=== PATIENT | female | born 1970 | race Caucasian/White ===

== ENCOUNTER 2018-06-06 08:00 | Outpatient (RCR) ==
[2014-07-30 11:58] VITALS: BMI 23.4
--- NOTE | 2018-05-25 16:49 | RS.OPPTEV2 ---
Date of Note: 05/25/18 Visit #: 1 Number of visits approved by Insurance: n/a Date of Evaluation: 05/25/18 Payer Source: Insurance Surgery Performed?: Yes (L shld manipulation) Date of Procedure: 05/24/18 Treatment Diagnosis: adhesive capsulitis of L shld, L shld pain and joint stiffness History of Condition/Mechanism of Injury:: Pain began around 02/2018. No definite injury. Underwent L shld manipulation on 05/24/18. Prior Level of Function.....Patient was independent with: ADL's, Self Care, Work /Vocation (works in real estate), Caregiving, Ambulation/Mobility, Community Integration/Access Functional Limitations: Sleep, ADL's, Reaching, Pushing, Pulling, Lifting, Carrying Current Subjective/complaints:: pt states that she took a pain pill approx 1 1/ 2 hour ago and it is not helping the pain at all. Reports she has been using ice at home since manipulation prior to that was alternating ice and heat. Treatment Side (optional): Left *Precautions: n/a Medical History Medical History: Unremarkable Surgical History: Hysterectomy Smoking Status: Never smoker Hx Home Medications: Belviq Patient's Goals: decrease pain in L shld and increase motion. Pain Assessment - Pain Description Pain Location: L shld Pain Description: Sharp, Aching Current Pain Intensity: 7 Worst Pain Intensity: 10 Functional Outcome Measure UE Functional Index: 57 - G Codes & Severity Modifier G Codes & Modifier: n/a Source of G Code score: n/a Observation - Observation Posture: Forward Head, Rounded Shoulders, Increased Lumbar Lordosis Handedness: Right Gait - Gait Pattern General Gait Pattern Observation: No Deviations/Normal General Range of Motion: RUE WFL's. LUE elbow and hand WFL's. BLE WFL's Muscle Strength: RUE 5/5. BLE 5/5. LUE elbow/wrist and hand 4/5 Shoulder ROM: Right WFL's Shoulder Muscle Strength: Right WFL's - Left Shoulder ROM Left Shoulder Flexion: 112 (AAROM) Left Shoulder Abduction: 88 (AAROM) Left Shoulder Internal Rotation: 26 Left Shoulder External Rotation: 20 Left Shoulder ROM Limitations: Soft Tissue Tightness, Muscle Weakness, Pain - Left Shoulder Strength Left Shoulder Flexion: 3- Fair- Left Shoulder Abduction: 3- Fair- Left Shoulder External Rotation: 3- Fair- Left Shoulder Internal Rotation: 3- Fair- - Special Tests Shoulder Empty Can (Supraspinatus) Test: Positive Left Shoulder Speed's Sign Test: Positive Left Shoulder Drop Arm Test: Positive Left Palpation Palpation Findings: Tenderness Comments:: tenderness noted at insertion of deltoid, and in bicipital groove Sensation - Sensation Right Upper Extremity: Intact/Normal Left Upper Extremity: Intact/Normal Right Lower Extremity: Intact/Normal Left Lower Extremity: Intact/Normal Balance - Sitting Balance Static Sitting Balance: Normal Dynamic Sitting Balance: Normal - Standing Balance Static Standing Balance: Normal Dynamic Standing Balance: Normal - Treatment Modality: Ultrasound Parameters/Method Applied: 1.5 w/cm2 x 10mins Treatment Area: L shld/upper trap Patient Position: Sitting Interventions - Exercise/Activities/Manual Therapy Exercises/Activities: pt received PROM L shld, pt also performed AAROM with wand for flex, abd/add. pt also performed scapular retraction and wall ladder for flex and abd. Manual Therapy: n/a HOME EXERCISE PROGRAM: pt given written HEP including: scapular retraction, wand ex, pendulum, wall walking - Charges Timed Code Treatment Minutes: 61 Total Treatment Time: 68 Procedures billed for this date of service:: ann lion, u/s EVALUATION COMPLEXITY LEVEL EVALUATION COMPLEXITY LEVEL: HISTORY: Low (L shld pain), EXAM OF BODY SYSTEMS: Low, CLINICAL PRESENTATION: Low, CLINICAL DECISION MAKING: Low Assessment Assessment: pt presents with diagnosis of adhesive capsulitis. pt with L shld pain with decreased ROM, strength, and increased muscle tightness in L upper trap. Feel pt would benefit from skilled PT for therex for ROM, stretching, strengthening as well as modalities to improve L shld ROM. Patient Education: Home Exercise Program, Education of Plan of Care Rehab Potential: Good Short Term Goals Goal #1: pt independent with initial HEP Goal to be met by: 06/02/18 Goal #2: Improve L shld ROM flex 120 abd 95 IR 30 ER 30 Goal to be met by: 06/02/18 Goal #3: Decrease pain to <6/10 L shld Goal to be met by: 06/02/18 Half-Way Goals Goal #1: pt able to perform normal household duties with less pain Goal to be met by: 06/09/18 Goal #2: pt with ROM L shld flex 130 abd 120 Goal to be met by: 06/09/18 Goal #3: pt report able to reach back of her head with LUE Goal to be met by: 06/09/18 Plan - Treatment to be Provided Procedures: Therapeutic Exercises, Therapeutic Activity, Manual Therapy, Massage , Patient Education Modalities: Electrical Stimulation, Ultrasound/Phonophoresis, Cryotherapy, Hot Packs - Treatment Plan Frequency: 5x Duration: 2 weeks Dates of Half-Way Goals: 06/09/18 Expiration date of current Insurance Approval:: n/a - Treatment Code (1) Adhesive capsulitis of left shoulder Code(s): M75.02 - ADHESIVE CAPSULITIS OF LEFT SHOULDER (2) Pain in joint, shoulder region Code(s): M25.519 - PAIN IN UNSPECIFIED SHOULDER Qualifiers: Laterality: left Qualified Code(s): M25.512 - Pain in left shoulder (3) Stiffness of joint, not elsewhere classified, shoulder region Code(s): M25.619 - STIFFNESS OF UNSPECIFIED SHOULDER, NOT ELSEWHERE CLASSIFIED (4) Muscle weakness Code(s): M62.81 - MUSCLE WEAKNESS (GENERALIZED)
--- NOTE | 2018-05-26 14:02 | RS.OPPTDN ---
Subjective Date of Note: 05/26/18 Visit #: 2 Number of visits approved by Insurance: n/a Date of Evaluation: 05/25/18 Payer Source: Insurance Treatment Diagnosis: adhesive capsulitis of L shld, L shld pain and joint stiffness Current Subjective/complaints:: pt states she is doing pretty good today. States she did work on stretching last night. *Precautions: n/a Pain Assessment - Pain Description Pain Location: L shld Pain Description: Aching Current Pain Intensity: 4 - Treatment Modality: Ultrasound Parameters/Method Applied: 1.5w/cm2 x 8 mins Treatment Area: L shld Patient Position: Sitting Interventions - Exercise/Activities/Manual Therapy Exercises/Activities: pt received PROM stretching L shld all planes of motion. pt performed shld flex wand ex for flex, and abd x 10, scapular retraction x 10 with green theraband, wall walking with flex, and abd, and ER stretch at the wall. pt also performed pulleys for flex, and abd x 10 reps. Manual Therapy: n/a HOME EXERCISE PROGRAM: pt given written HEP including: scapular retraction, wand ex, pendulum, wall walking - Charges Timed Code Treatment Minutes: 44 Total Treatment Time: 48 Procedures billed for this date of service:: ex 2, ultrasound Assessment: pt improving with L shld ROM as well as decreased pain. pt motivated to progress with PT. Patient Education: Home Exercise Program, Education of Plan of Care Patient demonstrates compliance with HEP?: Yes Short Term Goals Goal #1: pt independent with initial HEP Goal to be met by: 06/02/18 Progress towards Goal:: Progressing Goal #2: Improve L shld ROM flex 120 abd 95 IR 30 ER 30 Goal to be met by: 06/02/18 Progress towards Goal:: Progressing Goal #3: Decrease pain to <6/10 L shld Goal to be met by: 06/02/18 Progress towards Goal:: Progressing Food Safety Coordinator Goals Goal #1: pt able to perform normal household duties with less pain Goal to be met by: 06/09/18 Progress towards goal: Progressing Goal #2: pt with ROM L shld flex 130 abd 120 Goal to be met by: 06/09/18 Progress towards goal: Progressing Goal #3: pt report able to reach back of her head with LUE Goal to be met by: 06/09/18 Progress towards goal: Progressing Plan Dates of Food Safety Coordinator Goals: 06/09/18 Expiration date of current Insurance Approval:: 06/06/18 (must call ins) PLAN: continue to progress with stretching, strengthening as well as modalities to decrease pain and muscle tightness.
--- NOTE | 2018-05-30 09:56 | RS.OPPTDN ---
Subjective Date of Note: 05/29/18 Visit #: 3 Number of visits approved by Insurance: na Date of Evaluation: 05/25/18 Payer Source: Insurance Treatment Diagnosis: adhesive capsulitis of L shld, L shld pain and joint stiffness Current Subjective/complaints:: Patient reports soreness at end range with PROM. States she has difficulty with IR and ER of the left shoulder, especially when donning clothes. *Precautions: n/a Pain Assessment - Pain Description Pain Location: left shoulder Pain Description: Tightness, Aching Current Pain Intensity: mild to mod at end range - Treatment Modality: Ultrasound Parameters/Method Applied: [id number] at 1.5w/cm2 to the left shoulder joint and upper traps prior to EX. Patient in sitting. Patient Position: Sitting Interventions - Exercise/Activities/Manual Therapy Exercises/Activities: PROM to left shoulder all directions. Grade II joint mobs and gentle distraction. Increased to 3# wand for shoulder flexion and chest press. Yellow and red theraband for bilateral shoulder ER in supine. Ended with additional PROM stretching all directions. Wall walking with for flex, abd, and ER stretch. Doorway shoulder and anterior chest stretch, 3 position. Discussed overhead shoulder pulleys. Total minutes of Exercise: 32mins Manual Therapy: n/a HOME EXERCISE PROGRAM: pt given written HEP including: scapular retraction, wand ex, pendulum, wall walking - Charges Timed Code Treatment Minutes: 44mins Total Treatment Time: 46mins Procedures billed for this date of service:: US, EX2 Assessment: Patient able to tolerate increase PROM and stretching of the left shoulder. She is very attentive to instruction of HEP. Patient Education: Body/Joint mechanics, Home Exercise Program Patient demonstrates compliance with HEP?: Yes Short Term Goals Goal #1: pt independent with initial HEP Goal to be met by: 06/02/18 Progress towards Goal:: Progressing Goal #2: Improve L shld ROM flex 120 abd 95 IR 30 ER 30 Goal to be met by: 06/02/18 Progress towards Goal:: Progressing Goal #3: Decrease pain to <6/10 L shld Goal to be met by: 06/02/18 Progress towards Goal:: Progressing Upper Doubler Goals Goal #1: pt able to perform normal household duties with less pain Goal to be met by: 06/09/18 Progress towards goal: Progressing Goal #2: pt with ROM L shld flex 130 abd 120 Goal to be met by: 06/09/18 Progress towards goal: Progressing Goal #3: pt report able to reach back of her head with LUE Goal to be met by: 06/09/18 Progress towards goal: Progressing Plan Dates of Upper Doubler Goals: 06/09/18 Expiration date of current Insurance Approval:: 06/09/18 PLAN: Progress with ROM and strengthening of the left shoulder to return to PLOF.
--- NOTE | 2018-05-30 10:11 | RS.OPPTDN ---
Subjective Date of Note: 05/30/18 Visit #: 4 Number of visits approved by Insurance: na Date of Evaluation: 05/25/18 Payer Source: Insurance Treatment Diagnosis: adhesive capsulitis of L shld, L shld pain and joint stiffness Current Subjective/complaints:: Reports some increased soreness left shoulder joint last night. States she is seeing progress overall. *Precautions: n/a Pain Assessment - Pain Description Pain Location: left shoulder joint Pain Description: Tightness Pain Description: soreness Current Pain Intensity: mild - Treatment Modality: Ultrasound Parameters/Method Applied: [id number] at 1.5w/cm2 to the left shoulder joint and the upper trap prior to EX. Patient Position: Sitting Interventions - Exercise/Activities/Manual Therapy Exercises/Activities: PROM to left shoulder all directions, grade II joint mobs , and joint distraction. Manually resisted left shoulder flex, ext, IR, and ER, multiple reps. Increased to 5# wand for shoulder flexion and chest press. Green theraband for resisted left shoulder flex, ext, chest press, biceps and triceps press. Ended with additional PROM stretching all directions. In sitting, wand for overhead flexion. Total minutes of Exercise: 34mins Manual Therapy: n/a HOME EXERCISE PROGRAM: pt given written HEP including: scapular retraction, wand ex, pendulum, wall walking - Charges Timed Code Treatment Minutes: 44mins Total Treatment Time: 44mins Procedures billed for this date of service:: US, EX2 Assessment: Patient progressing well with strengthening. Patient Education: Home Exercise Program Patient demonstrates compliance with HEP?: Yes Short Term Goals Goal #1: pt independent with initial HEP Goal to be met by: 06/02/18 Progress towards Goal:: Progressing Goal #2: Improve L shld ROM flex 120 abd 95 IR 30 ER 30 Goal to be met by: 06/02/18 Progress towards Goal:: Progressing Goal #3: Decrease pain to <6/10 L shld Goal to be met by: 06/02/18 Progress towards Goal:: Progressing Senior Care Goals Goal #1: pt able to perform normal household duties with less pain Goal to be met by: 06/09/18 Progress towards goal: Progressing Goal #2: pt with ROM L shld flex 130 abd 120 Goal to be met by: 06/09/18 Progress towards goal: Progressing Goal #3: pt report able to reach back of her head with LUE Goal to be met by: 06/09/18 Progress towards goal: Progressing Plan Dates of Psychologist Military Personnel Goals: 06/09/18 Expiration date of current Insurance Approval:: 06/09/18 PLAN: Progress with ROM and strengthening of the left UE, working toward PLOF.
--- NOTE | 2018-05-31 15:40 | RS.OPPTDN ---
Subjective Date of Note: 05/31/18 Visit #: 5 Number of visits approved by Insurance: na Date of Evaluation: 05/25/18 Payer Source: Insurance Treatment Diagnosis: adhesive capsulitis of L shld, L shld pain and joint stiffness Current Subjective/complaints:: Patient reports she did some lifting last night and has some increase muscle soreness in the left shoulder and upper traps. *Precautions: n/a Pain Assessment - Pain Description Pain Location: left shoulder Pain Description: soreness Current Pain Intensity: mild - Treatment Modality: Ultrasound Parameters/Method Applied: [id number] at 1.5w/cm2 to the left shoulder and upper traps prior to EX. patient in sitting. Patient Position: Sitting Interventions - Exercise/Activities/Manual Therapy Exercises/Activities: PROM to left shoulder all directions, grade II joint mobs , and joint distraction. Manually resisted left shoulder isometrics in flex, ext , IR, and ER, multiple reps. 5# wand for shoulder flexion and chest press. Green theraband for resisted left shoulder flex, ext, chest press, biceps and triceps press. Green theraband and wand for resisted bilateral shoulder flexion and extension. Isometric bilateral IR with ball between hands. Ball for left shoulder add and ext. In sitting, 3# wand for bilateral shoulder flexion. Ended with additional PROM stretching all directions. In sitting, wand for overhead flexion. Total minutes of Exercise: 36mins Manual Therapy: n/a HOME EXERCISE PROGRAM: pt given written HEP including: scapular retraction, wand ex, pendulum, wall walking - Charges Timed Code Treatment Minutes: 48mins Total Treatment Time: 52mins Procedures billed for this date of service:: US, EX2 Assessment: Patient progressing well with ROM and strengthening. Patient Education: Body/Joint mechanics, Home Exercise Program, Home Safety, Activity Modification Patient demonstrates compliance with HEP?: Yes Short Term Goals Goal #1: pt independent with initial HEP Goal to be met by: 06/02/18 Progress towards Goal:: Partially Met Goal #2: Improve L shld ROM flex 120 abd 95 IR 30 ER 30 Goal to be met by: 06/02/18 Progress towards Goal:: Partially Met Goal #3: Decrease pain to <6/10 L shld Goal to be met by: 06/02/18 Progress towards Goal:: Partially Met Sulfur Burner Goals Goal #1: pt able to perform normal household duties with less pain Goal to be met by: 06/09/18 Progress towards goal: Progressing Goal #2: pt with ROM L shld flex 130 abd 120 Goal to be met by: 06/09/18 Progress towards goal: Progressing Goal #3: pt report able to reach back of her head with LUE Goal to be met by: 06/09/18 Progress towards goal: Progressing Plan Dates of Alf Goals: 06/09/18 Expiration date of current Insurance Approval:: 06/09/18 PLAN: Progress ROM and strengthening of the left shoulder to increase functional activity and return to PLOF.
--- NOTE | 2018-06-01 14:41 | RS.OPPTDN ---
Subjective Date of Note: 06/01/18 Visit #: 6 Number of visits approved by Insurance: na Date of Evaluation: 05/25/18 Payer Source: Insurance Treatment Diagnosis: adhesive capsulitis of L shld, L shld pain and joint stiffness Current Subjective/complaints:: Reports left shoulder soreness is better today. Reports mild to mod discomfort with end range stretch with left shoulder scaption. *Precautions: n/a Pain Assessment - Pain Description Pain Location: left shoulder, upper arm Pain Description: soreness Current Pain Intensity: mild to mod Interventions - Exercise/Activities/Manual Therapy Exercises/Activities: PROM to left shoulder all directions, grade II joint mobs. Manually resisted left shoulder isometrics in flex, ext, horz add, horz abd, IR, and ER, multiple reps. Increased to 6# wand for shoulder flexion and chest press. Green theraband for resisted left shoulder flex, ext, chest press, biceps and triceps press. Green theraband and wand for resisted bilateral shoulder flexion and extension. Isometric bilateral IR with ball between hands. 1 1/2# cuff weight for resisted left shoulder flex and scaption. In sitting, 3 # wand for bilateral shoulder flexion. 1 1/2# cuff weight for resisted left shoulder flexion, scaption, and "empty can". Total minutes of Exercise: 34mins Manual Therapy: Trigger point release to the left mid/upper traps. HOME EXERCISE PROGRAM: pt given written HEP including: scapular retraction, wand ex, pendulum, wall walking - Charges Timed Code Treatment Minutes: 34mins Total Treatment Time: 36mins Procedures billed for this date of service:: EX2 Assessment: Patient progressing with strengthening. Patient Education: Home Exercise Program Patient demonstrates compliance with HEP?: Yes Short Term Goals Goal #1: pt independent with initial HEP Goal to be met by: 06/02/18 Progress towards Goal:: Partially Met Goal #2: Improve L shld ROM flex 120 abd 95 IR 30 ER 30 Goal to be met by: 06/02/18 Progress towards Goal:: Partially Met Goal #3: Decrease pain to <6/10 L shld Goal to be met by: 06/02/18 Progress towards Goal:: Partially Met Cdl Team Truck Driver Goals Goal #1: pt able to perform normal household duties with less pain Goal to be met by: 06/09/18 Progress towards goal: Progressing Goal #2: pt with ROM L shld flex 130 abd 120 Goal to be met by: 06/09/18 Progress towards goal: Progressing Goal #3: pt report able to reach back of her head with LUE Goal to be met by: 06/09/18 Progress towards goal: Progressing Plan Dates of Fpc Goals: 06/09/18 Expiration date of current Insurance Approval:: 06/09/18 PLAN: Progress with AROM and strengthening.
--- NOTE | 2018-06-02 14:34 | RS.OPPTDN ---
Subjective Date of Note: 06/02/18 Visit #: 7 Number of visits approved by Insurance: NA Date of Evaluation: 05/25/18 Payer Source: Insurance Treatment Diagnosis: adhesive capsulitis of L shld, L shld pain and joint stiffness Current Subjective/complaints:: Patient reports soreness in the morning following increase in resistive exercise and manula therapy to the left upper trap. *Precautions: n/a Pain Assessment - Pain Description Pain Location: left shoulder, upper trap Pain Description: soreness Current Pain Intensity: mild Other Comments regarding Pain:: Discomfort at end range with flex, scap, and ER Interventions - Exercise/Activities/Manual Therapy Exercises/Activities: PROM to left shoulder all directions, grade II joint mobs. Manually resisted left shoulder isometrics in flex, ext, horz add, horz abd, IR, and ER, multiple reps. Increased to 7# wand for shoulder flexion and chest press. Green theraband for resisted left shoulder flex, ext, chest press, biceps and triceps press. Green theraband and wand for resisted bilateral shoulder flexion and extension. Isometric bilateral IR with ball between hands. 1 1/2# cuff weight for resisted left shoulder flex and scaption. In sitting, 3 # wand for bilateral shoulder flexion. 1 1/2# cuff weight for resisted left shoulder flexion, scaption, and "empty can". Total minutes of Exercise: 35mins Manual Therapy: Trigger point release to the left mid/upper traps. Total minutes of Manual Therapy: 8mins HOME EXERCISE PROGRAM: pt given written HEP including: scapular retraction, wand ex, pendulum, wall walking - Objective Findings Observations,measurements,etc.: Patient demos ROM WNL, but discomfort at end range. She presents with latent trigger points in the left mid trap and along the spine of mid scap - Charges Timed Code Treatment Minutes: 42mins Total Treatment Time: 45mins Procedures billed for this date of service:: EX2, MT Assessment: Patient progressing well with ROM and strengthening. Patient Education: Home Exercise Program Patient demonstrates compliance with HEP?: Yes Short Term Goals Goal #1: pt independent with initial HEP Goal to be met by: 06/02/18 Progress towards Goal:: Partially Met Goal #2: Improve L shld ROM flex 120 abd 95 IR 30 ER 30 Goal to be met by: 06/02/18 Progress towards Goal:: Met Goal #3: Decrease pain to <6/10 L shld Goal to be met by: 06/02/18 Progress towards Goal:: Partially Met Rapier Insertion Loom Fixer Goals Goal #1: pt able to perform normal household duties with less pain Goal to be met by: 06/09/18 Progress towards goal: Progressing Goal #2: pt with ROM L shld flex 130 abd 120 Goal to be met by: 06/09/18 Progress towards goal: Progressing Goal #3: pt report able to reach back of her head with LUE Goal to be met by: 06/09/18 Progress towards goal: Progressing Plan Dates of Rapier Insertion Loom Fixer Goals: 06/09/18 Expiration date of current Insurance Approval:: 06/09/18 PLAN: Progress strengthening to increase the functional use of the left UE.
--- NOTE | 2018-06-05 15:22 | RS.OPPTDN ---
Subjective Date of Note: 06/05/18 Visit #: 8 Number of visits approved by Insurance: na Date of Evaluation: 05/25/18 Payer Source: Insurance Treatment Diagnosis: adhesive capsulitis of L shld, L shld pain and joint stiffness Current Subjective/complaints:: Patient reports continued improvement. States muscle soreness continues, including at the mid left scap border with increase in strengthening exercise. *Precautions: n/a Pain Assessment - Pain Description Pain Location: left shoulder, scapular musculature Current Pain Intensity: mild Interventions - Exercise/Activities/Manual Therapy Exercises/Activities: PROM to left shoulder all directions. Manually resisted left shoulder isometrics in flex, ext, horz add, horz abd, IR, and ER, multiple reps. Green theraband for resisted left shoulder flex, ext, chest press, biceps and triceps press. Green theraband and wand for resisted bilateral shoulder flexion and extension. 1 1/2# cuff weight for resisted left shoulder flex and scaption. In sitting, active reaching including left shoulder flexion, scaption , and "empty can". Total minutes of Exercise: 32mins Manual Therapy: Trigger point release to the left mid/upper traps, and mid scap border. Distraction and joint mobs Grade I and II. All in supine. Trigger point work to left traps and mid scap border in sitting. Total minutes of Manual Therapy: 14mins HOME EXERCISE PROGRAM: pt given written HEP including: scapular retraction, wand ex, pendulum, wall walking - Charges Timed Code Treatment Minutes: 46mins Total Treatment Time: 50mins Procedures billed for this date of service:: EX2, MT Assessment: Patient progressing with daily activities and demos good ROM. She continues to have problems with muscle tightness and soreness. Patient Education: Body/Joint mechanics, Home Exercise Program, Home Safety Patient demonstrates compliance with HEP?: Yes Short Term Goals Goal #1: pt independent with initial HEP Goal to be met by: 06/02/18 Progress towards Goal:: Met Goal #2: Improve L shld ROM flex 120 abd 95 IR 30 ER 30 Goal to be met by: 06/02/18 Progress towards Goal:: Met Goal #3: Decrease pain to <6/10 L shld Goal to be met by: 06/02/18 Progress towards Goal:: Met Transformation Specialist Goals Goal #1: pt able to perform normal household duties with less pain Goal to be met by: 06/09/18 Progress towards goal: Met Goal #2: pt with ROM L shld flex 130 abd 120 Goal to be met by: 06/09/18 Progress towards goal: Progressing Goal #3: pt report able to reach back of her head with LUE Goal to be met by: 06/09/18 Progress towards goal: Progressing Plan Dates of Transformation Specialist Goals: 06/09/18 Expiration date of current Insurance Approval:: 06/09/18 PLAN: Continue this week to complete orders and met treatment goals.
--- NOTE | 2018-06-06 12:58 | RS.OPPTDN ---
Subjective Date of Note: 06/06/18 Visit #: 9 Number of visits approved by Insurance: na Date of Evaluation: 05/25/18 Payer Source: Insurance Treatment Diagnosis: adhesive capsulitis of L shld, L shld pain and joint stiffness Current Subjective/complaints:: Patient reports soreness in the anterior superior left shoulder joint. States left upper traps muscle tension has improved. Reports she is doing more daily activities at home and will continue HEP following discharge. *Precautions: n/a Pain Assessment - Pain Description Pain Location: left shoulder Current Pain Intensity: mild, no pain at rest Interventions - Exercise/Activities/Manual Therapy Exercises/Activities: PROM to left shoulder all directions. Manually resisted left shoulder isometrics in flex, ext, horz add, horz abd, IR, and ER, multiple reps. Increased blue theraband for resisted left shoulder flex, ext, chest press , biceps and triceps press. Blue theraband and wand for resisted bilateral shoulder flexion and extension. 1 1/2# cuff weight for resisted left shoulder flex and scaption. Red theraband for bilateral shoulder ER and UE diagonals, 2 dierctions. In sitting, active reaching including left shoulder flexion, scaption, and "empty can". Blue theraband for sacp retraction and red for bilateral shoulder ER. Total minutes of Exercise: 38mins Manual Therapy: Trigger point release to the left mid/upper traps, and mid scap border. Distraction and joint mobs Grade I and II. All in supine. Trigger point work to left traps and mid scap border in sitting. Total minutes of Manual Therapy: 5mins HOME EXERCISE PROGRAM: pt given written HEP including: scapular retraction, wand ex, pendulum, wall walking. Theraband resisted bilateral shoulder ER, UE diagonals, scap retraction. - Objective Findings Observations,measurements,etc.: Hi travisos full left shoulder flexion and abduction in standing. Demos left shoulder ER to approx 75-80 degrees and IR WFL 's. She demos 4+/5 MMT with flexion, 4 to 4+/5 with abduction, and 5/5 with extension. - Charges Timed Code Treatment Minutes: 43mins Total Treatment Time: 43mins Procedures billed for this date of service:: EX3 Assessment: Patient has progressed well and benefitted from treatment. She has met all 6 treatment goals and is independent with HEP. Patient Education: Home Exercise Program, Home Safety, Activity Modification, Education of Plan of Care Patient demonstrates compliance with HEP?: Yes Short Term Goals Goal #1: pt independent with initial HEP Goal to be met by: 06/02/18 Progress towards Goal:: Met Goal #2: Improve L shld ROM flex 120 abd 95 IR 30 ER 30 Goal to be met by: 06/02/18 Progress towards Goal:: Met Goal #3: Decrease pain to <6/10 L shld Goal to be met by: 06/02/18 Progress towards Goal:: Met Custodial Goals Goal #1: pt able to perform normal household duties with less pain Goal to be met by: 06/09/18 Progress towards goal: Met Goal #2: pt with ROM L shld flex 130 abd 120 Goal to be met by: 06/09/18 Progress towards goal: Met Goal #3: pt report able to reach back of her head with LUE Goal to be met by: 06/09/18 Progress towards goal: Met Plan Dates of Custodial Goals: 06/09/18 Expiration date of current Insurance Approval:: 06/09/18 PLAN: Discharge with HEP.
== END 2018-06-06 23:59 ==
PROVIDERS: ATTEND Orthopaedic Surgery
DX: M75.02 Adhesive capsulitis of left shoulder (principal)

== ENCOUNTER 2018-10-06 09:00 | Outpatient (RCR) ==
[2014-07-30 11:58] VITALS: BMI 23.4
--- NOTE | 2018-09-22 16:08 | RS.OTEVAL ---
Subjective Date of Note: 09/20/18 Visit #: 1 Number of visits approved by Insurance: to be approved by insurance. Payer Source: Insurance Surgery Performed?: Yes (L shld manipulation) Treatment Diagnosis: Chronic shoulder pain M25.519, G89.29 Treatment Side (optional): Left *Precautions: n/a Prior Level of Function.....Patient was independent with: ADL's, Self Care, Work /Vocation, Caregiving, Ambulation/Mobility, Community Integration/Access History of Condition/Mechanism of Injury: Pt reports she went to Dr. Taylor for the pain in the Left shoulder. Pt reported that they did an MRI and there was a small tear in the left shoulder rotator cuff. Pt reported that she tried to get the doctor to fix the tear and he said to wait 6 weeks. Pt then returned to Dr. Taylor and he wanted to do a procedure on her and she refused the procedure and wanted physical therapy. Patient reported that she decided to go to Dr. Ortega to get an order for Left shoulder rehabilitation. Level of Function: Pt reports she is having a difficult time completing shoulder extension. She has pain all of the time. Pt reports pain in lateral deltoid and traps. Patient has to have her daughter help her snap her bra in the back due to limited AROM. Pt has difficulty applying her seat belt and patient has difficulty with pulling down the abarca of her car (pulling it down). Functional Limitations: ADL's, Reaching, Pushing, Lifting, Carrying Current Complaints/Gains: Pt has most of her pain with LUE shoulder extension. Pt has difficulty and increased pain with donning her bra. Pt has a difficult time grooming her hair and opening a jar. Pt has a difficult time with preparing food and driving. Medical History Medical History Comments:: Right Rotator cuff repair. Left shoulder manipulation. Surgical History: Hysterectomy Smoking Status: Never smoker Hx Home Medications: Belviq Pain Assessment - Pain Description Pain Description: Tightness, Radiating, Sharp Pain Location: Pain in anterior shoulder and lateral deltoid. Pt reports pain limits her LUE shoulder flexion, Internal rotation, External rotation and shoulder extension. Pain Description: Pt reports her LUE shoulder aches all of the time. Current Pain Intensity: 5-6/10 Worst Pain Intensity: 8/10 Functional Outcome Measures UE Functional Index: 46 - G Codes & Severity Modifier G Codes: . Source of G Code score: . Observation - Observation Posture: Rounded Shoulders Handedness: Right Shoulder ROM: Right WFL's Shoulder Muscle Strength: Right WFL's - Left Shoulder ROM Left Shoulder Flexion: 133 Left Shoulder Extension: 34 Left Shoulder Abduction: 90 Left Shoulder Horizontal Abduction: 30 Left Shoulder Horizontal Adduction: 30 Left Shoulder Internal Rotation: 41 Left Shoulder External Rotation: 43 Left Shoulder ROM Limitations: Soft Tissue Tightness, Muscle Weakness, Pain - Left Shoulder Strength Left Shoulder Flexion: 3- Fair- Left Shoulder Extension: 3- Fair- Left Shoulder Abduction: 3- Fair- Left Shoulder Adduction: 3 Fair Left Shoulder External Rotation: 3- Fair- Left Shoulder Internal Rotation: 3- Fair- - Right Shoulder Strength Right Shoulder Flexion: 4+ Good + Right Shoulder Extension: 4+ Good + Right Shoulder Abduction: 4+ Good + Right Shoulder Adduction: 4+ Good + Right Shoulder External Rotation: 4+ Good + Right Shoulder Internal Rotation: 4+ Good + Elbow ROM: Bilaterally WFL's Elbow Muscle Strength: Bilaterally WFL's Wrist ROM: Bilaterally WFL's Wrist Muscle Strength: Bilaterally WFL's Arc Air Operator Strength Left Hand Arc Air Operator Strength: 30 Right Hand Arc Air Operator Strength: 45 Dynamometer Testing Position: 2nd Position Palpation Palpation Findings: Tenderness, Muscle Guarding Sensation Right Upper Extremity: Intact/Normal Left Upper Extremity: Intact/Normal Additional Comments Additional Comments: Patient reports when she is in supine position her left shoulder hurts. Pt is having to sleep on the right side. She is using ice bottles. Interventions - Exercise/Activities Exercise/Activities/Manual Therapy: Pt tolerated manual therapy of trigger point release to subscapularis muscle, trapezius muscle, and supraspinatus muscle. Pt completed AROM of Left shoulder flexion, Abduction, and internal rotation/external rotation. HOME EXERCISE PROGRAM: Pt educated on stretching into internal rotation, external rotation, and abduction to increase AROM of LUE shoulder. - Objective Findings Objective Findings:: Pt has limited AROM and increased pain with internal rotation, external rotation and shoulder flexion of LUE. - Charges Timed Code Treatment Minutes: 75 Total Treatment Time: 90 Procedures billed for this date of service:: Evaluation medium, MT x 2, CP EVALUATION COMPLEXITY LEVEL: HISTORY: Medium, EXAM OF BODY SYSTEMS: Medium, CLINICAL DECISION MAKING: Medium Assessment Assessment: Pt has limited AROM of the LUE. Patient Education: Education of diagnosis, Body/Joint mechanics, Home Exercise Program, Education of Plan of Care Rehab Potential: Good Problems/Comments: Pain with functional use of LUE. Short Term Goals Goal #1: Pt to be independent with home exercise program. Goal to be met by: 10/06/18 Goal #2: Pt to increase Mass bag making machine operator of LUE to 35. Goal to be met by: 10/06/18 Goal #3: Pt to have full AROM of LUE shoulder. Goal to be met by: 10/06/18 Goal #4: Pt pain to decrease to 0-2/10. Goal to be met by: 10/06/18 Casing Runner Goals Goal #1: Pt to increase MMT of LUE shoulder to be 4+/5. Goal to be met by: 10/23/18 Goal #2: Pt to increase Mass bag making machine operator of LUE to 45#. Goal to be met by: 10/23/18 Goal #3: Pt to be I with ADLS. Goal to be met by: 10/23/18 Goal #4: Pt to have 0 pain in LUE shoulder. Goal to be met by: 10/23/18 Plan - Treatment to be provided Procedures: Therapeutic Exercises, Therapeutic Activity, Manual Therapy Modalities: Electrical Stimulation, Ultrasound/Phonophoresis - Treatment Plan Frequency: 2 X week Duration: 4 weeks Dates of Casing Runner Goals: 10/23/18 Expiration date of current Insurance Approval:: 10/23/18 - Treatment Code (1) Stiffness of joint, not elsewhere classified, shoulder region Code(s): M25.619 - STIFFNESS OF UNSPECIFIED SHOULDER, NOT ELSEWHERE CLASSIFIED Comments: M25.619 Joint Stiffness of joint. (2) Pain in joint, shoulder region Code(s): M25.519 - PAIN IN UNSPECIFIED SHOULDER Qualifiers: Laterality: left Qualified Code(s): M25.512 - Pain in left shoulder Comments: M25.512 Left shoulder pain
--- NOTE | 2018-09-22 16:30 | RS.OTDNOTE ---
Subjective Date of Note: 09/22/18 Visit #: 2 Number of visits approved by Insurance: 8 Date of Evaluation: 09/20/18 Payer Source: Insurance Treatment Diagnosis: Chronic shoulder pain M25.519, G89.29 *Precautions: n/a Current Complaints/Gains: Pt's pain reported in the anterior aspect of the shoulder. Pt reported alot of her pain had decreased since initial evaluation and Manual therapy. Pain Assessment - Pain Description Pain Description: Aching Pain Location: anterior shoulder Pain Description: aches Current Pain Intensity: 0 Worst Pain Intensity: 6 Other comments regarding pain:: Pain with internal rotation and external rotation is 6/10 with LUE. Modalities - Treatment Modality: Ultrasound Parameters/Method Applied: .4 w/cm2 for 10 minutes to the left trapezius muscle. Treatment Area: left trapezius muscle Patient Position: Sitting Interventions - Exercise/Activities Exercise/Activities/Manual Therapy: US to the trapezius muscles, subscapularis, and posterior shoulder. Manual therapy to the LUE subscapularis muscle, trapezius muscle, supraspinatus, and pectoralis major and minor manipulation to increase external rotation of LUE shoulder. Pt educated on completing AROM of LUE shoulder in supine position for shoulder flexion and internal rotation. HOME EXERCISE PROGRAM: stretching on the table top or the corner of a wall into external rotation. Pt stretching into internal rotation. Pt educated on icing her shoulder. - Objective Findings Objective Findings:: Pt is improving and her pain is less than the initial evaluation. Pt has been icing and stretching her LUE. - Charges Timed Code Treatment Minutes: 60 Total Treatment Time: 65 Procedures billed for this date of service:: US, MT x 2, EX, CP Assessment Assessment: Pt is responding positively to manual therapy to the Left scapula. Patient Education: Education of diagnosis, Body/Joint mechanics, Home Exercise Program, Home Safety, Education of Plan of Care Problems/Comments: Pt has pain in her neck and shoulder. Patient demonstrates compliance with HEP?: Yes Short Term Goals Goal #1: To be Independent with Home exercise program. Goal to be met by: 10/06/18 Goal #2: To increase mass electronic controls repairer supervisor to 35#. Goal to be met by: 10/06/18 Goal #3: To increase full AROM of LUE shoulder. Goal to be met by: 10/06/18 Goal #4: To decrease pain 0-2/10. Goal to be met by: 10/06/18 Alf Goals Goal #1: To increase MMT of LUE to be 4+/5. Goal to be met by: 10/23/18 Goal #2: To increase mass electronic controls repairer supervisor to 45#. Goal to be met by: 10/23/18 Goal #3: To be Independent with ADLS. Goal to be met by: 10/23/18 Goal #4: To have no pain in LUE shoulder. Goal to be met by: 10/23/18 Plan Dates of Manager Of Clinical Goals: 10/23/18 Expiration date of current Insurance Approval:: 10/23/18 PLAN: OT to increase AROM of LUE to be full AROM. OT to increase strength of LUE to be WFL.
--- NOTE | 2018-09-25 13:54 | RS.OTDNOTE ---
Subjective Date of Note: 09/25/18 Visit #: 3 Number of visits approved by Insurance: 8 Date of Evaluation: 09/20/18 Payer Source: Insurance Treatment Diagnosis: Chronic shoulder pain M25.519, G89.29 *Precautions: n/a Current Complaints/Gains: Pt states she took half a pain medicine prior to therapy this am. States increased pain with PROM in supine and sidelying positons. States "reaching back hurts the most" Pain Assessment - Pain Description Pain Description: Aching Pain Location: anterior shoulder Pain Description: aches Current Pain Intensity: 4 Worst Pain Intensity: 7 Modalities - Treatment Modality: Ultrasound Parameters/Method Applied: .04w-1.5w/cm2 x 10 mins x 2 to anterior/posterior shoulder, trapezius and subscapularis Patient Position: Left Sidelying Comments:: supine and (R) sidelying positon - Hot Pack/Cryotherapy Treatment: Cryotherapy (CP x 10 mins following tx) Interventions - Exercise/Activities Exercise/Activities/Manual Therapy: US to the trapezius muscles, subscapularis, and posterior shoulder. Manual therapy to the LUE subscapularis muscle, trapezius muscle, supraspinatus, and pectoralis major and minor with manipulation to increase external rotation, flexion, and abduction of the LUE shoulder. Pt educated on completing AROM of LUE shoulder in supine position for shoulder flexion and utilizing door frame and towell behind back for internal/external rotation along with isometric ex's and wall walking or alfonso system. HOME EXERCISE PROGRAM: continued AROM-A/AROM ex's and application of ice pack. - Objective Findings Objective Findings:: AROM shoulder flexion WFL with co pain. Pt demo decreased IR/ER and shoulder extension. - Charges Timed Code Treatment Minutes: 52 Total Treatment Time: 61 Procedures billed for this date of service:: CP US EX MT Assessment Patient Education: Education of diagnosis, Body/Joint mechanics, Home Exercise Program, Home Safety, Activity Modification, Education of Plan of Care Patient demonstrates compliance with HEP?: Yes Short Term Goals Goal #1: To be Independent with Home exercise program. Goal to be met by: 10/06/18 Progress towards goal: Progressing Goal #2: To increase mass hat marker to 35#. Goal to be met by: 10/06/18 Progress towards goal: Progressing Goal #3: To increase full AROM of LUE shoulder. Goal to be met by: 10/06/18 Progress towards goal: Progressing Goal #4: To decrease pain 0-2/10. Goal to be met by: 10/06/18 Progress towards goal: Progressing Chute Operator Goals Goal #1: To increase MMT of LUE to be 4+/5. Goal to be met by: 10/23/18 Progress towards goal: Progressing Goal #2: To increase mass hat marker to 45#. Goal to be met by: 10/23/18 Progress towards goal: Progressing Goal #3: To be Independent with ADLS. Goal to be met by: 10/23/18 Progress towards goal: Progressing Goal #4: To have no pain in LUE shoulder. Goal to be met by: 10/23/18 Progress towards goal: Progressing Plan Dates of Chute Operator Goals: 10/23/18 Expiration date of current Insurance Approval:: 10/23/18 PLAN: Continue per POC to max fx UE AROM with decreased c/o pain.
--- NOTE | 2018-09-28 08:09 | RS.OTDNOTE ---
Subjective Date of Note: 09/27/18 Visit #: 4 Number of visits approved by Insurance: 8 Date of Evaluation: 09/20/18 Payer Source: Insurance Treatment Diagnosis: Chronic shoulder pain M25.519, G89.29 *Precautions: n/a Current Complaints/Gains: Pt with increased c/o "aches in arm" but contributes to the weather and storms yesterday. States she is unable to bereket/doff a bra or reach into her dryer but buckeling her seatbelt is easier now. States good compliance with applying CP/HP the past few days. Pain Assessment - Pain Description Pain Description: Aching Pain Location: anterior shoulder Pain Description: aches Current Pain Intensity: 2-3 Modalities - Treatment Modality: Electrical Stim Unattended Parameters/Method Applied: Hi-volt x 2 large pads to head of bicep and trapezius areax 20 mins with CP donned during. Patient Position: Sitting - Treatment Modality: Ultrasound - Hot Pack/Cryotherapy Treatment: Hot Pack, Cryotherapy Comments:: HP x 15 mins prior to tx with CP applied following tx x 20 mins during estim application Interventions - Exercise/Activities Exercise/Activities/Manual Therapy: Hi volt/CP x20 mins. Manual therapy to subscapularis, supraspinatus, and trapezius along with AC joint and deltoid with trigger point and MFR performed. PROM-(A)AROM and isometric ex's performed of shoulder flexion/extension and IR/ER. Pt unable to perform A rotation towell IR/ER behind back 2* increase c/o pain and "a catching" of UE. HOME EXERCISE PROGRAM: continued AROM-A/AROM ex's and application of ice pack. - Objective Findings Objective Findings:: AROM shoulder flexion WFL with co pain. Pt demo decreased IR/ER and shoulder extension. - Charges Timed Code Treatment Minutes: 50 Total Treatment Time: 80 Procedures billed for this date of service:: CP ESTIM EX MT2 Assessment Patient Education: Education of diagnosis, Body/Joint mechanics, Home Exercise Program, Home Safety, Activity Modification, Education of Plan of Care Patient demonstrates compliance with HEP?: Yes Short Term Goals Goal #1: To be Independent with Home exercise program. Goal to be met by: 10/06/18 Progress towards goal: Progressing Goal #2: To increase mass glass furnace tender to 35#. Goal to be met by: 10/06/18 Progress towards goal: Progressing Goal #3: To increase full AROM of LUE shoulder. Goal to be met by: 10/06/18 Progress towards goal: Progressing Goal #4: To decrease pain 0-2/10. Goal to be met by: 10/06/18 Progress towards goal: Progressing Police Sergeant [employer]inct Goals Goal #1: To increase MMT of LUE to be 4+/5. Goal to be met by: 10/23/18 Progress towards goal: Progressing Goal #2: To increase mass glass furnace tender to 45#. Goal to be met by: 10/23/18 Progress towards goal: Progressing Goal #3: To be Independent with ADLS. Goal to be met by: 10/23/18 Progress towards goal: Progressing Goal #4: To have no pain in LUE shoulder. Goal to be met by: 10/23/18 Progress towards goal: Progressing Plan Dates of Care Home Goals: 10/23/18 Expiration date of current Insurance Approval:: 10/23/18 PLAN: Continue per POC to max functional UE AROM to perform all ADL's without increase of pain.
--- NOTE | 2018-09-29 10:51 | RS.OTDNOTE ---
Subjective Date of Note: 09/29/18 Visit #: 5 Number of visits approved by Insurance: 8 Date of Evaluation: 09/20/18 Payer Source: Insurance Treatment Diagnosis: Chronic shoulder pain M25.519, G89.29 *Precautions: n/a Current Complaints/Gains: Pt states and demo increased A/AROM. Shoulder flexion and abduction WNL. States she has been lifting a half gallon of milk into/out of the refrigerator without any increase of pain. Also states she performed towell ROM following hot shower this am and feels she is able to move into ER/IR better but still not able to reach her bra hooks. Pain Assessment - Pain Description Pain Description: Aching Pain Location: anterior shoulder Pain Description: aches Modalities - Treatment Modality: Ultrasound Parameters/Method Applied: .05-1.0w/cm2 x 12 mins to upper trapezius/deltoids. Patient Position: Sitting - Hot Pack/Cryotherapy Treatment: Hot Pack, Cryotherapy Interventions - Exercise/Activities Exercise/Activities/Manual Therapy: Manual therapy/trigger point and scapula manipulation performed in sitting and sidelying position including subscapularis , pectoralis, and supraspinatus. Pt performed and ed continued for HEP/ isometric ex's, towell/cane IR/ER and door frame stretching along with chair shoulder extensiton stretching. HOME EXERCISE PROGRAM: continued AROM-A/AROM ex's and application of ice pack. - Objective Findings Objective Findings:: AROM shoulder flexion/abduction WFL without increase c/o pain. - Charges Timed Code Treatment Minutes: 61 Total Treatment Time: 72 Procedures billed for this date of service:: CP US MT2 EX Assessment Patient Education: Education of diagnosis, Body/Joint mechanics, Home Exercise Program, Home Safety, Activity Modification, Education of Plan of Care Patient demonstrates compliance with HEP?: Yes Short Term Goals Goal #1: To be Independent with Home exercise program. Goal to be met by: 10/06/18 Progress towards goal: Partially Met Goal #2: To increase mass senior technical support analyst to 35#. Goal to be met by: 10/06/18 Progress towards goal: Progressing Goal #3: To increase full AROM of LUE shoulder. Goal to be met by: 10/06/18 (flexion/abduction met) Progress towards goal: Progressing Goal #4: To decrease pain 0-2/10. Goal to be met by: 10/06/18 Progress towards goal: Progressing Residential Goals Goal #1: To increase MMT of LUE to be 4+/5. Goal to be met by: 10/23/18 Progress towards goal: Progressing Goal #2: To increase mass senior technical support analyst to 45#. Goal to be met by: 10/23/18 Progress towards goal: Progressing Goal #3: To be Independent with ADLS. Goal to be met by: 10/23/18 Progress towards goal: Progressing Goal #4: To have no pain in LUE shoulder. Goal to be met by: 10/23/18 Progress towards goal: Progressing Plan Dates of Tubing Mill Operator Goals: 10/23/18 Expiration date of current Insurance Approval:: 10/23/18 PLAN: Continue per POC to max functional UE AROM and GS to complete all normal ADL tasks.
--- NOTE | 2018-10-03 14:35 | RS.OTDNOTE ---
Subjective Date of Note: 10/03/18 Visit #: 6 Number of visits approved by Insurance: 8 Date of Evaluation: 09/20/18 Payer Source: Insurance Treatment Diagnosis: Chronic shoulder pain M25.519, G89.29 *Precautions: n/a Current Complaints/Gains: Pt states she was able to bereket/doff her bra snap in back over the wknd but is again unable to this am. States and points to middle deltoid pain with all ER/IR isometric ex's and PROM. Pain Assessment - Pain Description Pain Description: Aching Pain Location: anterior shoulder Pain Description: aches Modalities - Treatment Modality: Ultrasound Parameters/Method Applied: .05-1.5w/cm 2 to trapezius and deltoids/ supraspinatus muscle groups - Hot Pack/Cryotherapy Treatment: Cryotherapy Comments:: Ice massage performed with manual therapy to middle deltoid Interventions - Exercise/Activities Exercise/Activities/Manual Therapy: Manual therapy/trigger point and scapula manipulation performed in sitting position including subscapularis, pectoralis , and supraspinatus. Pt performed and ed continued for HEP/isometric ex's, towell/cane IR/ER and door frame stretching along with chair shoulder extensiton stretching. Manual therapy during ice massage. HOME EXERCISE PROGRAM: continued AROM-A/AROM ex's and application of ice pack. - Objective Findings Objective Findings:: AROM shoulder flexion/abduction WFL without increase c/o pain. Pain increase with IR/ER and during palpation of AC/deltoids. - Charges Timed Code Treatment Minutes: 54 Total Treatment Time: 61 Procedures billed for this date of service:: CP US MT2 Assessment Patient Education: Education of diagnosis, Body/Joint mechanics, Home Exercise Program, Home Safety, Activity Modification, Education of Plan of Care Patient demonstrates compliance with HEP?: Yes Short Term Goals Goal #1: To be Independent with Home exercise program. Goal to be met by: 10/06/18 Progress towards goal: Met Goal #2: To increase mass blower operator to 35#. Goal to be met by: 10/06/18 Progress towards goal: Progressing Goal #3: To increase full AROM of LUE shoulder. Goal to be met by: 10/06/18 (flexion/abduction met) Progress towards goal: Partially Met Goal #4: To decrease pain 0-2/10. Goal to be met by: 10/06/18 Progress towards goal: Progressing Candy Counter Clerk Goals Goal #1: To increase MMT of LUE to be 4+/5. Goal to be met by: 10/23/18 Progress towards goal: Progressing Goal #2: To increase mass blower operator to 45#. Goal to be met by: 10/23/18 Progress towards goal: Progressing Goal #3: To be Independent with ADLS. Goal to be met by: 10/23/18 Progress towards goal: Progressing Goal #4: To have no pain in LUE shoulder. Goal to be met by: 10/23/18 Progress towards goal: Progressing Plan Dates of Candy Counter Clerk Goals: 10/23/18 Expiration date of current Insurance Approval:: 10/23/18 PLAN: Continue per POC to max functional ADL performance.
--- NOTE | 2018-10-06 11:53 | RS.OTDNOTE ---
Subjective Date of Note: 10/06/18 Visit #: 7 Number of visits approved by Insurance: 8 Date of Evaluation: 09/20/18 Payer Source: Insurance Treatment Diagnosis: Chronic shoulder pain M25.519, G89.29 *Precautions: n/a Current Complaints/Gains: Pt states she has pain relief for a day or two following therapy. States pain increase today and has an x marked on middle deltoid of UE. States she did do some gardening work and also placed/pulled up some real estate for sale signs. Also states she is returning to Dr Taylor next and agrees to stop therapy today untill MD appointment. Pain Assessment - Pain Description Pain Description: Sharp, Aching Pain Location: anterior shoulder Pain Description: aches Current Pain Intensity: 3 Worst Pain Intensity: 9 Modalities - Treatment Modality: Ultrasound Parameters/Method Applied: 1.5w/cm2 x 12 mins. Patient Position: Sitting - Hot Pack/Cryotherapy Treatment: Hot Pack, Cryotherapy Interventions - Exercise/Activities Exercise/Activities/Manual Therapy: Manual therapy/trigger point and scapula manipulation performed in sitting position including subscapularis, pectoralis , and supraspinatus. Pt performed and ed continued for HEP/isometric ex's, towell/cane IR/ER and door frame stretching along with chair shoulder extensiton stretching. Manual therapy during ice massage. HOME EXERCISE PROGRAM: continued AROM-A/AROM ex's and application of ice pack. - Objective Findings Objective Findings:: AROM shoulder flexion/abduction WFL without increase c/o pain. Pain increase with IR/ER and during palpation of AC/deltoids. - Charges Timed Code Treatment Minutes: 48 Total Treatment Time: 58 Procedures billed for this date of service:: CP MT2 Assessment Patient Education: Education of diagnosis, Body/Joint mechanics, Home Exercise Program, Home Safety, Activity Modification, Education of Plan of Care Patient demonstrates compliance with HEP?: Yes Short Term Goals Goal #1: To be Independent with Home exercise program. Goal to be met by: 10/06/18 Progress towards goal: Met Goal #2: To increase mass low pressure boiler operator to 35#. Goal to be met by: 10/06/18 Progress towards goal: Progressing Goal #3: To increase full AROM of LUE shoulder. Goal to be met by: 10/06/18 (flexion/abduction met) Progress towards goal: Partially Met Goal #4: To decrease pain 0-2/10. Goal to be met by: 10/06/18 Progress towards goal: Progressing Holistic Nutritionist Goals Goal #1: To increase MMT of LUE to be 4+/5. Goal to be met by: 10/23/18 Progress towards goal: Progressing Goal #2: To increase mass low pressure boiler operator to 45#. Goal to be met by: 10/23/18 Progress towards goal: Progressing Goal #3: To be Independent with ADLS. Goal to be met by: 10/23/18 Progress towards goal: Progressing Goal #4: To have no pain in LUE shoulder. Goal to be met by: 10/23/18 Progress towards goal: Progressing Plan Dates of Prison Goals: 10/23/18 Expiration date of current Insurance Approval:: 10/23 PLAN: Pt placed on hold for follow-up MD appointment. Pt to call therapy dept following DR Taylor appointment
== END 2018-10-07 23:59 ==
PROVIDERS: ATTEND Family Medicine
DX: M25.512 Pain in left shoulder (principal); G89.29 Other chronic pain